=== PATIENT | female | born 1995 | race Caucasian/White ===

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

== ENCOUNTER → 2018-11-18 | Outpatient (CLI) | payer BC | LOC: FIMAGING 10:05 | PROVIDERS: ATTEND Registered Nurse | DX: J98.4 Other disorders of lung (principal) ==

== ENCOUNTER → 2018-12-13 | Outpatient (CLI) | payer BC ==
[~2018-12-13] MED LIST: GADOBUTROL 10 ML VIAL IVP ONE
== END ==
LOC: FIMAGING 17:46
PROVIDERS: ATTEND Nurse Practitioner Women's Health
DX: R93.89 Abnormal findings on diagnostic imaging of other specified body structures (principal); Q51.3 Bicornate uterus
CPT/HCPCS: A9585

== ENCOUNTER → 2019-01-04 | Outpatient (CLI) | payer BC | LOC: FIMAGING 14:10 ==